=== PATIENT | female | born 1975 | race Caucasian/White ===

== ENCOUNTER 2020-10-29 08:33 | Day surgery (SDC) | payer MEDICAID ==
[2020-10-29] VITALS (11 sets, daily range): BP systolic 98–114; BP diastolic 49–67; PULSE 92–103; TEMP 98.9
[~2020-10-29] VITALS: Ht 157.5 cm; Wt 99.1 kg
[2020-10-29] MEDS ORDERED: CELEBREX 200MG200 MG PO (09:21)
[2020-10-29] MEDS ORDERED: IMDUR 30MG30 MG/TAB PO (09:22)
[2020-10-29] MEDS ORDERED: PLAVIX 75MG TAB75 MG PO (09:22)
[2020-10-29] MEDS ORDERED: NITROSTAT0.4 MG/TAB SL (09:23)
[2020-10-29] MEDS ORDERED: ABILIFY 15MG TA15 MG PO (09:23)
[2020-10-29] MEDS ORDERED: 00186-0372-20 IH (09:25)
[2020-10-29] MEDS ORDERED: CARAFATE 1GM1 G PO (09:25)
[2020-10-29] MEDS ORDERED: VENTOLIN0.09 MG IH (09:26)
[2020-10-29] MEDS ORDERED: PROTONIX 40MG T40 MG PO (09:26)
[2020-10-29] MEDS ORDERED: VITAMIN D31000 IU PO (09:27)
[2020-10-29 09:44] LABS: HEMOGLOBIN 11.1 g/dl (12.5-16.0); MEAN CELL VOLUME 72 fl (80.0-100.0); MEAN CORPUSCULAR HEMOGLOBIN 22 pg (27.0-31.0); MEAN CORPUSCULAR HGB CONC 30 g/dl (33.0-37.0); MEAN PLATELET VOLUME 9.1 fl (7.4-10.4); PLATELET COUNT 378 K/mm3 (130-400); RED BLOOD COUNT 5.04 M/mm3 (4.10-5.30); REDCELL DISTRIBUTION WIDTH-CV 18.7 % (11.5-14.5)
[2020-10-29 09:45] LABS: HEMATOCRIT 36.5 % (37.0-47.0)
[2020-10-29 09:54] LABS: CALCIUM 9.4 mg/dL (8.4-10.2); CREATININE, serum 0.6 (0.52-1.25); POTASSIUM 4.3 mmol/L (3.4-5.0)
[2020-10-29 10:05] LABS: PROTHROMBIN TIME 10.8 SECONDS (9.7-12.8)
--- NOTE | 2020-10-29 10:36 | NUR ---
SEE MERGE DOCUMENTATION FOR MEDICATION ADMINISTRATION TIMES AND INTRA/POST PROCEDURE SEDATION ASSESSMENTS. RIGHT HAND BARBEAU TEST POSITIVE.
--- NOTE | 2020-10-29 11:10 | NUR ---
PT back to [facility] after heart cath. report received from [facility] OCHO[facility]. pt awake and alert, TR band to rt wrist, cms intact. NSR on tele, wctm. pt aware of poc, family is bringing her lunch, a drink is provided. no concerns at this time. call light in reach.
--- NOTE | 2020-10-29 14:35 | NUR ---
TR band has been deflated with no problem, site dressed with bandaid, folded 2x2 and coban dressing. cms remains intact distal pt is amb in room and at nurses station with steady gait. IV dc'd with cath intact, dressing applied. I reviewed dc and fu instructions with pt who verbalized understanding. pt verbalized understnading and denied questions at time of departure. pt to exit via wheelchair.
== END 2020-10-29 14:45 | disposition home or self-care (01) ==
LOC: COL.CAR 08:33
PROVIDERS: Internal Medicine Interventional Cardiology
DX: R07.89 Other chest pain (principal); R94.39 Abnormal result of other cardiovascular function study; E78.1 Pure hyperglyceridemia; E11.9 Type 2 diabetes mellitus without complications; I10 Essential (primary) hypertension; F17.200 Nicotine dependence, unspecified, uncomplicated; Z79.02 Long term (current) use of antithrombotics/antiplatelets; Z79.899 Other long term (current) drug therapy
CPT/HCPCS: C1769; J1644; J2250; J3010; Q9967